=== PATIENT | male | born 1960 | race Two or more races ===

== ENCOUNTER 2019-10-31 13:33 | Emergency (ER) | payer MEDICAID ==
[~2019-10-31] VITALS: Ht 177.8 cm; Wt 93.0 kg
--- NOTE | 2019-10-31 13:50 | NUR ---
BIBRA FROM STREETS FOR ETOH, PASSED OUT IN A SIDEWALK. BG 104. PT ASLEEP, EASILY AWAKEN BY VERBAL STIMULI & WILL GO BACK TO SLEEP. VSS. RR EVEN & UNLABORED. PT STABLE, NAD NOTED AT THIS TIME. 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 AWAITING EVAL BY ERMD & WILL CONT TO MONITOR.
--- NOTE | 2019-10-31 15:48 | NUR ---
Patient is resting comfortably in bed with eyes closed. Easily aroused. VSS
[2019-10-31 17:18] VITALS: BP 115/87
--- NOTE | 2019-10-31 17:18 | NUR ---
Patient discharged to home in stable condition. Written and verbal after care instructions given. Patient verbalizes understanding of instruction.
== END 2019-10-31 17:19 | disposition home or self-care (01) ==
LOC: ER 13:38 → EDBD 13:38 → ER 17:19
DX: F10.129 Alcohol abuse with intoxication, unspecified (principal); Y90.9 Presence of alcohol in blood, level not specified